=== PATIENT | female | born 1990 | race Caucasian/White ===

== ENCOUNTER 2016-10-11 19:08 | Emergency (ER) | payer OTHER ==
[~2016-10-11] VITALS: Ht 149.9 cm; Wt 110.0 kg
[2016-10-11] MEDS ORDERED: HYDROmorphone 2 MG/ML SYRINGE IVP ONE ×2 (19:45→23:00)
[2016-10-11 23:18] VITALS: BP 138/72
== END 2016-10-11 23:23 | disposition home or self-care (01) ==
LOC: EMS 19:11
DX: S72.421A Displaced fracture of lateral condyle of right femur, initial encounter for closed fracture (principal); F17.210 Nicotine dependence, cigarettes, uncomplicated; W10.8XXA Fall (on) (from) other stairs and steps, initial encounter; Y93.01 Activity, walking, marching and hiking; Y92.89 Other specified places as the place of occurrence of the external cause; Y99.8 Other external cause status
CPT/HCPCS: 27560; 73560; 73562; 73700; 96374; 96376; 99284; J1170

== ENCOUNTER 2016-12-11 14:54 | Emergency (ER) | payer OTHER ==
[~2016-12-11] VITALS: Ht 167.6 cm; Wt 100.0 kg
[2016-12-11 17:59] VITALS: BP 130/70
== END 2016-12-11 21:21 | disposition home or self-care (01) ==
LOC: EMS 14:55
DX: S06.0X9A Concussion with loss of consciousness of unspecified duration, initial encounter (principal); S00.83XA Contusion of other part of head, initial encounter; F17.210 Nicotine dependence, cigarettes, uncomplicated; Y04.2XXA Assault by strike against or bumped into by another person, initial encounter; Y93.89 Activity, other specified; Y92.89 Other specified places as the place of occurrence of the external cause; Y99.8 Other external cause status
CPT/HCPCS: 70110; 70450; 81025; 99284; 99406